=== PATIENT | female | born 1955 | race African-American/Black ===

== ENCOUNTER 2019-02-04 10:49 | Inpatient (IN) | payer OTHER ==
[2019-01-30 09:24] VITALS: BMI 28.0
[2019-02-04] MEDS ORDERED: TRANEXAMIC ACID 1000 MG/10 ML VIAL IVPUSH ONE (12:01)
[2019-02-04] MEDS ORDERED: VANCOMYCIN 1,000 MG in DEXTROSE 5%-WATER - 250 ML IVPB ONE (12:01)
[2019-02-04] MEDS ORDERED: CEFAZOLIN 2 GM in DEXTROSE 5%-WATER - 50 ML IVPB ONE (12:01)
[2019-02-04] MEDS ORDERED: TRANEXAMIC ACID 1000 MG/10 ML VIAL ONE (12:43)
[2019-02-04] MEDS ORDERED: PROPOFOL 20 ML ONE ×3 (12:43→15:24)
[2019-02-04] MEDS ORDERED: ceFAZolin SODIUM 1 GM VIAL ONE (12:43)
[2019-02-04] MEDS ORDERED: BUPIVACAINE HCL/PF 0.5% (5MG/ML) 10 ML VIAL ONE (12:50)
[2019-02-04] MEDS ORDERED: HYDROmorphone HCL CARPU-JECT 1 MG/1 ML DISP.SYRIN IVPUSH PRN (13:57)
[2019-02-04] MEDS ORDERED: oxyCODONE HCL 5 MG TABLET PO PRN (13:57)
[2019-02-04] MEDS ORDERED: LACTATED RINGERS SOLUTION 1,000 ML IV SCH ×2 (14:00→17:00)
[2019-02-04] MEDS ORDERED: DEXAMETHASONE SOD PHOSPHATE 4 MG/1 ML VIAL ONE (14:55)
[2019-02-04] MEDS ORDERED: ONDANSETRON 4 MG/2 ML VIAL ONE ×2 (14:55→18:02)
--- NOTE | 2019-02-04 16:49 | OP ---
Operative Note - Note: Operative Date: 02/04/19 Pre-Operative Diagnosis: Left knee osteoarthritis Operation: Left knee arthroplasty Post-Operative Diagnosis: Same as Pre-op Surgeon: Johnathon Carbajal Traveling Missionary: Wang Rider Anesthesia: Spinal Estimated Blood Loss (mls): 25 Operative Report Dictated: Yes
--- NOTE | 2019-02-04 16:50 | SURG ---
Surgery Vice President Process Note Vice President Process: Wang Rider PA-C Date of Service: 02/04/19 Diagnosis: Left knee osteoarthritis Procedure: Left knee arthroplasty I was present for the entirety of the operative procedure. For further detail, please refer to operative report. Visit type - Case Type Case Type: Scheduled - Emergency Emergency Visit: No - New patient This patient is new to me today: Yes Date on this admission: 02/04/19 - Critical Care Critical Care patient: No
[2019-02-04] MEDS ORDERED: MELATONIN 5 MG TABLETS PO PRN (16:51)
[2019-02-04] MEDS ORDERED: ALBUTEROL SO4 8 GM HFA INHALER IH PRN (16:51)
[2019-02-04] MEDS ORDERED: ONDANSETRON 4 MG/2 ML VIAL IVPUSH PRN (16:53)
[2019-02-04] MEDS ORDERED: MAGNESIUM HYDROX 2400MG/30ML ORAL SUSPENSION 30 ML CUP PO PRN (16:53)
[2019-02-04] MEDS: ACETAMINOPHEN 325 MG TABLET (FP) PO SCH ×2 (17:45→21:39)
[2019-02-04] MEDS ORDERED: ACETAMINOPHEN 325 MG TABLET (FP) ONE (17:50)
[2019-02-04] MEDS ORDERED: CEFAZOLIN 2 GM in DEXTROSE 5%-WATER - 50 ML IVPB SCH ×2 (18:00→22:00)
[2019-02-04] MEDS: MAG HYDROX/AL HYDROX/SIMETH 30 ML UNIT-DOSE CUP PO PRN (18:20)
--- NOTE | 2019-02-04 18:33 | HP ---
Admitting History and Physical - Admission Chief Complaint: Left knee osteoarthritis History of Present Illness: 63 yo lady with worsening Left knee osteoarthritis, with worsening pain came in for arthroplasty with Dr Carbajal. denies chest pain, palpitations, nausea, vomiting, diarrhea History Source: Patient Limitations to Obtaining History: No Limitations - Smoking History Smoking history: Never smoked Have you smoked in the past 12 months: No - Alcohol/Substance Use Hx Alcohol Use: Yes (SOCIALLY) Home Medications - Allergies Allergies/Adverse Reactions: Allergies Allergy/AdvReac Type Severity Reaction Status Date / Time sulfamethoxazole Allergy Severe Nausea AND Verified 02/04/19 12:44 LETHARGY trimethoprim Allergy Severe Nausea Verified 02/04/19 12:44 LETHARGY - Home Medications Home Medications: Ambulatory Orders Albuterol Sulfate Inhaler - [Ventolin Hfa Inhaler -] 2 inh PO Q6H PRN MDD USES RARELY 01/30/19 Aspirin [Aspirin EC] 81 mg PO DAILY 01/30/19 Atorvastatin Ca [Lipitor] 10 mg PO DAILY 01/30/19 Biotin 5,000 mcg PO HS 01/30/19 Biotin 10,000 mcg PO DAILY 01/30/19 Chlorpheniramine Maleate [Aller-Chlor] 4 mg PO BID 01/30/19 Clonidine HCl [Clonidine HCl ER] 0.1 mg PO HS 01/30/19 Losartan/Hydrochlorothiazide [Losartan-Hctz 100-25 mg Tab] 1 each PO DAILY 01/30 Melatonin 10 mg PO HS PRN 01/30/19 Naproxen Sodium 440 mg PO BID 01/30/19 Omeprazole 20 mg PO HS 01/30/19 Saccharomyces Boulardii [Probiotic] 500 mg PO DAILY 01/30/19 Sitagliptin Phosphate [Januvia] 100 mg PO DAILY 01/30/19 metFORMIN HCL [Metformin HCl ER] 1,500 mg PO DAILY 01/30/19 Family Disease History - Family Disease History Family History: Unremarkable Review of Systems - Review of Systems Constitutional: reports: No Symptoms Eyes: reports: No Symptoms HENT: reports: No Symptoms Neck: reports: No Symptoms Cardiovascular: reports: No Symptoms Respiratory: reports: No Symptoms Gastrointestinal: reports: No Symptoms Genitourinary: reports: No Symptoms Musculoskeletal: reports: Joint Pain Integumentary: reports: No Symptoms Neurological: reports: No Symptoms Endocrine: reports: No Symptoms Hematology/Lymphatic: reports: No Symptoms Psychiatric: reports: No Symptoms Pain Intensity: 7 Physical Examination Vital Signs: Vital Signs Temperature 98 F 02/04/19 17:30 Pulse Rate 65 02/04/19 17:30 Respiratory Rate 16 02/04/19 17:30 Blood Pressure 129/66 02/04/19 17:30 O2 Sat by Pulse Oximetry (%) 100 02/04/19 17:30 Constitutional: Yes: Well Nourished Eyes: Yes: WNL HENT: Yes: WNL Neck: Yes: WNL Cardiovascular: Yes: WNL Respiratory: Yes: WNL Gastrointestinal: Yes: WNL Renal/: Yes: WNL Musculoskeletal: Yes: Joint Stiffness Extremities: Yes: WNL Edema: No Peripheral Pulses WNL: Yes Integumentary: Yes: WNL Wound/Incision: Yes: Clean/Dry, Well Approximated Neurological: Yes: WNL ...Motor Strength: WNL Psychiatric: Yes: WNL Assessment/Plan 63 yo lady with left knee OA S/P Left knee arthroplasty POD #0. cont pain management, incentive spirometry. stool softeners added to avoid opioid induced constipation. -GI, DVT prophylaxis. -type 2 DM: on metformin, januvia -chronic asthma: cont bronchodilators -CAD: on aspirin, lipitor -HTN: on hyzaar, clonidine -oral diet, diabetic, low sodium -PT/OT/OOB as tolerated -DC planned for Saturday if cleared
[2019-02-04] MEDS: ASPIRIN COATED 81 MG TABLET.EC PO SCH (21:40)
[2019-02-04] MEDS: SENNOSIDES/DOCUSATE COMBO (SENNA PLUS) TABLET (UD) PO SCH (21:40)
[2019-02-04] MEDS: ATORVASTATIN CA 10 MG TABLET (FP) PO SCH (21:40)
[2019-02-04] MEDS: oxyCODONE HCL 10 MG SUSTAINED ACTING TABLET PO SCH (21:40)
[2019-02-04] MEDS: CEFAZOLIN 2 GM/D5W 2 GM/50 ML ML IVPB SCH (21:41)
[2019-02-04] MEDS ORDERED: PATIENT'S OWN MEDICATION (NON-FORMULARY) (Clonidine Hcl [Clonidine Hcl Er] 0.1 MG) PO SCH (22:00)
[2019-02-04] MEDS ORDERED: NAPROXEN SODIUM 440 MG PO SCH (22:00)
[2019-02-04] MEDS ORDERED: PATIENT'S OWN MEDICATION (NON-FORMULARY) (Biotin [Biotin] 5,000 MCG) PO SCH (22:00)
[2019-02-04] MEDS ORDERED: PATIENT'S OWN MEDICATION (NON-FORMULARY) (Omeprazole 20 MG) PO SCH (22:00)
[2019-02-04] MEDS ORDERED: CHLORPHENIRAMINE MALEATE 4 MG PO SCH (22:00)
[2019-02-04] MEDS: oxyCODONE HCL 5 MG TABLET PO PRN (22:13)
[2019-02-05] MEDS ORDERED: HYDROmorphone HCL CARPU-JECT 1 MG/1 ML DISP.SYRIN IVPB PRN (01:46)
[2019-02-05] MEDS ORDERED: ACETAMINOPHEN 1000 MG/100 ML VIAL (NON FORMULARY) IVPB ONE (01:48)
[2019-02-05] MEDS ORDERED: KETOROLAC TROMETHAMINE 30 MG/1 ML VIAL IVPUSH ONE (01:49)
[2019-02-05] MEDS: ONDANSETRON 4 MG/2 ML VIAL IVPUSH PRN ×2 (01:54→08:13)
[2019-02-05] MEDS: ACETAMINOPHEN 325 MG TABLET (FP) PO SCH ×4 (05:36→20:03)
[2019-02-05] MEDS: CEFAZOLIN 2 GM/D5W 2 GM/50 ML ML IVPB SCH (05:36)
[2019-02-05 07:52] LABS: HEMATOCRIT 36.7 % (32.4-45.2); HEMOGLOBIN 12.3 GM/dl (10.7-15.3); MCH 31.7 pg (25.7-33.7); MCHC 33.5 g/dl (32.0-36.0); MEAN CELL VOLUME 94.6 fl (80-96); MEAN PLT VOLUME 8.6 fl (7.5-11.1); PLATELET COUNT 251 K/MM3 (134-434); RBC 3.87 M/mm3 (3.60-5.2); RDW 12.6 % (11.6-15.6); WHITE BLOOD COUNT 14.9 K/mm3 (4.0-10.8)
[2019-02-05 07:57] LABS: CALCIUM 9.2 mg/dl (8.5-10); CREATININE 1.2 mg/dl (0.55-1.3); POTASSIUM 4.1 mmol/L (3.5-5.1)
[2019-02-05] MEDS ORDERED: METOCLOPRAMIDE HCL INJECTION 10 MG/2 ML VIAL IVPUSH PRN (08:17)
--- NOTE | 2019-02-05 08:22 | SPA.POSTOP ---
- POST-OP NOTE POD #1 s/p Left TKR No acute events since surgical procedure per RN notes. Patient resting comfortably. Pain management via prn meds. Denies n/v/f/c, CP or SOB. Last Vital Signs Temp Pulse Resp BP Pulse Ox 97.7 F 79 16 128/61 100 02/05/19 06:00 02/05/19 06:00 02/05/19 06:00 02/05/19 06:00 02/05/19 06:00 Physical Exam General: No acute distress. Pulm: breathing comfortably Cor: Regular rhythm LLE: Soft, non-tender bilat. SCD's bilat. no weakness or numbness, drain in place with serosanguinous drainage. Output: 90ml Problem List - Problems (1) S/P total knee replacement Assessment/Plan: Plan -OOB/ambulate with PT -pain management -DVT ppx -will plan for discharge tomorrow. Code(s): Z96.659 - PRESENCE OF UNSPECIFIED ARTIFICIAL KNEE JOINT Qualifiers: Laterality: left Qualified Code(s): Z96.652 - Presence of left artificial knee joint
[2019-02-05] MEDS: sitaGLIPtin PHOSPHATE 50 MG TABLET PO SCH (09:49)
[2019-02-05] MEDS: LACTOBACILLUS ACIDOPHILUS 1 TABLET PO SCH (09:51)
[2019-02-05] MEDS: LOSARTAN 50MG/HCTZ 12.5MG 1 TAB (FP) PO SCH (09:51)
[2019-02-05] MEDS: ASPIRIN COATED 81 MG TABLET.EC PO SCH ×2 (09:51→21:34)
[2019-02-05] MEDS: PANTOPRAZOLE 40 MG TABLET (FP) PO SCH (09:52)
[2019-02-05] MEDS: SENNOSIDES/DOCUSATE COMBO (SENNA PLUS) TABLET (UD) PO SCH ×2 (09:52→21:34)
[2019-02-05] MEDS: MULTIVITAMINS (DAILY MVI) TABLET (FP) PO SCH (09:53)
[2019-02-05] MEDS ORDERED: BIOTIN 10000 MCG PO SCH (10:00)
--- NOTE | 2019-02-05 10:23 | OP ---
DATE OF OPERATION: DATE OF DICTATION: 02/05/2019 SURGEON: Johnathon Carbajal MD DIET ASSISTANT: NJ Sullivan PREOPERATIVE DIAGNOSIS: Tricompartmental osteoarthritis of the left knee with fixed flexion deformity and fixed varus deformity. POSTOPERATIVE DIAGNOSIS: Tricompartmental osteoarthritis of the left knee with fixed flexion deformity and fixed varus deformity. OPERATION PERFORMED: Left posterior stabilized cemented total knee arthroplasty ([place]). ANESTHESIA: Conscious sedation with peripheral nerve block, as well as spinal anesthesia. ANTIBIOTICS GIVEN: Kefzol 2 g, 1 g vancomycin. PROCEDURE: Patient was correctly identified, brought to the operating room. The left lower extremity free draped and prepped in the routine manner with Betadine scrub solution, wiped off with alcohol, DuraPrep applied. The left lower extremity was examined, was found to have a 10-degree fixed flexion deformity and a 7 to 10-degree fixed varus deformity. Midline incision utilized. The quadriceps mechanism was identified. After incising down through the subcutaneous fat to the fascia, the medial vastus was identified. The epimysium of the muscle was dissected off the muscle belly extending all the way around to the medial intermuscular septum, stripping the muscle off the intermuscular septum, down to the knee aspera. The dissection was taken leaving a 1-inch cuff of tissue off the distal border of vastus medialis; so the incision was from the medial side of the capsule along the femur, extending all the way to meet the proximal tibial dissection, which was directly off the bone on the medial side of the proximal bone bed. This was a sharp dissection. The knee was subluxed forward with no difficulty. The cruciate ligaments were transected. Hohmann placed on the lateral side of the tibia. The first cut made was the tibia with extra-medullary jig alignment. The cut was made 90 degrees to the tibial shaft to measure a size 4 tibia; 2 mm of bone was taken from diseased medial side. The femur itself, the starter drill was placed just at the level of the posterior cruciate ligament at the top of the intercondylar notch and the starter drill was inserted. The sword for the distal femoral cut was inserted, measured to 4 degrees of valgus and 3 degrees of external rotation. The joint line was by 2 mm as 10 mm of bone was resected. Utilizing the [employer] [place] all block jig system, chamfer cuts were made appropriately. A size 3 femoral component was opted for. The trial implants were inserted, bringing about full anatomical realignment and complete stability with a 13 mm spacer. The flexion and extension gaps were even at 13 mm. Laxity noted on the medial side, this because of the correction of the quadrilateral extension gap. The shock tension was tested on the medial side. Once all these parameters were identified and noted, the tibial tray was appropriately completed by inserting the peg hole, as well as the fins for the appropriate tibial component. The bone bed was thoroughly lavaged with pulse lavage. Once this had been completed, the cementing was in 1 stage all components tibia, femur and then patella. It must be noted that the patella button was cut from quad tendon to patellar ligament and the appropriate 27 mm lag hole was drilled and inserted. All components were cemented in 1 seating. All cement was cured and extraneous cement removed appropriately. The tissues were washed and lavaged completely and found to be completely free of any abnormalities, any free fragments of cement or bone. The 13 mm TS polyethylene inserted. This brought about a range of 0 to 120 degrees on the table and complete stability in the coronal, as well as the sagittal plane, both in varus valgus, as well as in rotation. Once again the shock test tested, revealed complete stability of the medial side. Once again the wounds were thoroughly lavaged. Closure in the quadriceps medial retinaculum 1 Vicryl, subcutaneous 1 and 2-0 Vicryl, skin 3-0 Monocryl with Steri-Strips x1. DRAINAGE: Hemovac 1/8-inch brought out laterally to drain the sub-vastus bed. COMPLICATIONS: No complications. Operation well. MD DIETER Velazquez/[id number]
[2019-02-05] MEDS: oxyCODONE HCL 10 MG SUSTAINED ACTING TABLET PO SCH ×2 (11:34→21:34)
[2019-02-05] MEDS: oxyCODONE HCL 5 MG TABLET PO PRN (16:29)
--- NOTE | 2019-02-05 16:50 | PN ---
Progress Note, Physician Chief Complaint: left knee pain - Current Medication List Current Medications: Active Medications Acetaminophen (Tylenol -) 650 mg PO Q6H [facility] Stop: 02/07/19 13:59 Last Admin: 02/05/19 14:30 Dose: 650 mg Al Hydroxide/Mg Hydroxide (Mylanta Oral Suspension -) 30 ml PO Q4H PRN PRN Reason: DYSPEPSIA Last Admin: 02/04/19 18:20 Dose: 30 ml Albuterol Sulfate (Ventolin Hfa Inhaler -) 2 puff IH Q6H PRN PRN Reason: WHEEZING Aspirin (Ecotrin -) 81 mg PO BID [facility] Last Admin: 02/05/19 09:51 Dose: 81 mg Atorvastatin Calcium (Lipitor -) 10 mg PO HS [facility] Last Admin: 02/04/19 21:40 Dose: 10 mg HCTZ/Losartan Potassium (Hyzaar -) 2 tab PO DAILY [facility] Last Admin: 02/05/19 09:51 Dose: 2 tab Hydromorphone HCl (Dilaudid Injection -) 1 mg IVPB Q8H PRN PRN Reason: PAIN LEVEL 4 - 6 Stop: 02/06/19 01:45 Last Admin: 02/05/19 01:45 Dose: 1 mg Lactobacillus Acidophilus (Bacid -) 1 tab PO DAILY [facility] Last Admin: 02/05/19 09:51 Dose: 1 tab Magnesium Hydroxide (Milk Of Magnesia -) 30 ml PO PRN PRN PRN Reason: CONSTIPATION Melatonin (Melatonin) 10 mg PO HS PRN PRN Reason: INSOMNIA Metformin HCl (Glucophage Xr -) 1,500 mg PO DAILY@0700 [facility] Last Admin: 02/05/19 09:49 Dose: 1,500 mg Metoclopramide HCl (Reglan Injection -) 10 mg IVPUSH Q6H PRN PRN Reason: NAUSEA AND/OR VOMITING Last Admin: 02/05/19 11:42 Dose: 10 mg Multivitamins/Minerals/Vitamin C (Tab-A-Vit -) 1 tab PO DAILY [facility] Last Admin: 02/05/19 09:53 Dose: 1 tab Non-Formulary Medication (Biotin [Biotin]) 5,000 mcg PO HS [facility] Non-Formulary Medication (Biotin [Biotin]) 10,000 mcg PO DAILY [facility] Non-Formulary Medication (Chlorpheniramine Maleate [Aller-Chlor]) 4 mg PO BID [facility] Non-Formulary Medication (Clonidine Hcl [Clonidine Hcl Er]) 0.1 mg PO HS [facility] Non-Formulary Medication (Naproxen Sodium [Naproxen Sodium]) 440 mg PO BID [facility] Oxycodone HCl (Roxicodone -) 5 mg PO Q3H PRN PRN Reason: PAIN LEVEL 1-5 Last Admin: 02/05/19 16:29 Dose: 5 mg Oxycodone HCl (Roxicodone -) 10 mg PO Q3H PRN PRN Reason: PAIN LEVEL 6-10 Last Admin: 02/05/19 01:00 Dose: 10 mg Oxycodone HCl (Oxycontin -) 10 mg PO BID [facility] Stop: 02/07/19 13:58 Last Admin: 02/05/19 11:34 Dose: Not Given Pantoprazole Sodium (Protonix -) 40 mg PO DAILY [facility] Last Admin: 02/05/19 09:52 Dose: 40 mg Senna/Docusate Sodium (Pericolace -) 2 tablet PO BID [facility] Last Admin: 02/05/19 09:52 Dose: 2 tablet Sitagliptin Phosphate (Januvia -) 100 mg PO DAILY@0700 [facility] Last Admin: 02/05/19 09:49 Dose: 100 mg - Objective Vital Signs: Vital Signs Temperature 98.5 F 02/05/19 14:00 Pulse Rate 68 02/05/19 14:00 Respiratory Rate 17 02/05/19 14:00 Blood Pressure 134/56 L 02/05/19 14:00 O2 Sat by Pulse Oximetry (%) 98 02/05/19 14:00 Constitutional: Yes: Well Nourished, No Distress Eyes: Yes: WNL HENT: Yes: WNL Neck: Yes: WNL Cardiovascular: Yes: WNL Respiratory: Yes: WNL Gastrointestinal: Yes: WNL Genitourinary: Yes: WNL Musculoskeletal: Yes: Joint Stiffness Extremities: Yes: WNL Edema: No Peripheral Pulses WNL: Yes Integumentary: Yes: WNL Wound/Incision: Yes: Clean/Dry, Well Approximated Neurological: Yes: WNL ...Motor Strength: WNL Psychiatric: Yes: WNL Labs: CBC, BMP 02/05/19 07:33 02/05/19 07:33 Assessment/Plan 63 yo lady with left knee OA S/P Left knee arthroplasty POD #1. cont pain management, incentive spirometry. stool softeners added to avoid opioid induced constipation. -GI, DVT prophylaxis. -type 2 DM: on metformin, januvia -chronic asthma: cont bronchodilators -hyponatremia: acceptable when corrected for hyperglycemia. -CAD: on aspirin, lipitor -HTN: on hyzaar, clonidine -oral diet, diabetic, low sodium -PT/OT/OOB as tolerated -DC planned for tomorrow
[2019-02-05] MEDS: MAG HYDROX/AL HYDROX/SIMETH 30 ML UNIT-DOSE CUP PO PRN (21:34)
[2019-02-05] MEDS: ATORVASTATIN CA 10 MG TABLET (FP) PO SCH (21:34)
[2019-02-06] MEDS: ACETAMINOPHEN 325 MG TABLET (FP) PO SCH ×2 (01:45→08:52)
[2019-02-06] MEDS: MAG HYDROX/AL HYDROX/SIMETH 30 ML UNIT-DOSE CUP PO PRN ×2 (06:11→11:18)
[2019-02-06] MEDS: sitaGLIPtin PHOSPHATE 50 MG TABLET PO SCH (06:12)
[2019-02-06] MEDS: oxyCODONE HCL 5 MG TABLET PO PRN (06:12)
[2019-02-06 07:19] LABS: HEMATOCRIT 38.3 % (32.4-45.2); MEAN CELL VOLUME 94.3 fl (80-96); MEAN PLT VOLUME 8.7 fl (7.5-11.1); PLATELET COUNT 270 K/MM3 (134-434); RBC 4.06 M/mm3 (3.60-5.2); RDW 12.6 % (11.6-15.6); WHITE BLOOD COUNT 17.6 K/mm3 (4.0-10.8)
[2019-02-06 07:45] VITALS: BP 115/59; PULSE 77; TEMP 98.6
--- NOTE | 2019-02-06 08:13 | PN ---
Progress Note (short form) - Note Progress Note: Orthopedic surgery POD#2 left TKA patient seen and examined at bedside. Patient states her pain is controlled and she has been ambulating with a walker and PT. She is tolerating her diet and voiding. She denies any CP, SOB, Fever, chills or N/V/D. Vital Signs Temp 98.6 F 02/06/19 06:00 Pulse 77 02/06/19 06:00 Resp 19 02/06/19 06:00 BP 115/59 L 02/06/19 06:00 Pulse Ox 98 02/06/19 07:44 Intake & Output 02/05/19 02/05/19 02/06/19 11:59 23:59 11:59 Intake Total 400 Output Total 300 560 60 Balance -300 -160 -60 Intake: Oral 400 Output: Drainage 100 60 60 Left Knee 100 60 60 Urine 200 500 Void 200 500 Other: Voiding Method Toilet Toilet # Unmeasured Voids Void 900 CBC, BMP 02/06/19 07:05 02/05/19 07:33 PE: A&OX3, NAD unlabored resp on RA Left LE: Thigh soft and supple. knee with diffuse edema appropriate to status, dressing c/d/i with surrounding tissue intact, no evidence of tracking erythema , collection or d/c, drain removed with tip fully intact, drain site with no active bleeding. AROM from 0-80 degrees. B/L LE compartments soft, supple and non-tender with +2 DP pulses and 5/5 dorsi/ plantar flexion. Problem List - Problems (1) S/P total knee replacement Assessment/Plan: POD#2 Left TKA with elevated WBCs but afebrile with no signs of infection. 1) Continue Aspirin 81 mg BID x 6 weeks to prevent DVT. 2) OOB with Walker and PT 3) WBAT 4) d/c home today 5) Encourage daily IS Evaluation and plan discussed with Dr Sy Code(s): Z96.659 - PRESENCE OF UNSPECIFIED ARTIFICIAL KNEE JOINT Qualifiers: Laterality: left Qualified Code(s): Z96.652 - Presence of left artificial knee joint
[2019-02-06] MEDS: MULTIVITAMINS (DAILY MVI) TABLET (FP) PO SCH (09:29)
[2019-02-06] MEDS: PANTOPRAZOLE 40 MG TABLET (FP) PO SCH (09:29)
[2019-02-06] MEDS: LOSARTAN 50MG/HCTZ 12.5MG 1 TAB (FP) PO SCH (09:29)
[2019-02-06] MEDS: ASPIRIN COATED 81 MG TABLET.EC PO SCH (09:29)
[2019-02-06] MEDS: SENNOSIDES/DOCUSATE COMBO (SENNA PLUS) TABLET (UD) PO SCH (09:29)
[2019-02-06] MEDS: oxyCODONE HCL 10 MG SUSTAINED ACTING TABLET PO SCH (09:29)
[2019-02-06] MEDS: LACTOBACILLUS ACIDOPHILUS 1 TABLET PO SCH (09:30)
--- NOTE | 2019-02-06 09:48 | DS ---
Physical Examination Vital Signs: Vital Signs Temperature 98.6 F 02/06/19 06:00 Pulse Rate 77 02/06/19 06:00 Respiratory Rate 18 02/06/19 08:06 Blood Pressure 115/59 L 02/06/19 06:00 O2 Sat by Pulse Oximetry (%) 99 02/06/19 08:06 Labs: CBC, BMP 02/06/19 07:05 02/05/19 07:33 Discharge Summary Reason For Visit: TRANSIENT SYNOVITIS LEFT KNEE Current Active Problems S/P total knee replacement (Acute) Hospital Course: 63 yo lady with left knee OA S/P Left knee arthroplasty POD #2. cont pain management, incentive spirometry. stool softeners added to avoid opioid induced constipation. -GI, DVT prophylaxis. -type 2 DM: on metformin, januvia -chronic asthma: cont bronchodilators -hyponatremia: acceptable when corrected for hyperglycemia. -CAD: on aspirin, lipitor -HTN: on hyzaar, clonidine -oral diet, diabetic, low sodium -PT/OT/OOB as tolerated Condition: Good - Instructions Diet, Activity, Other Instructions: Dr. Carbajal Discharge Instructions for Knee Replacement Post Operative Instructions Physical activity Physical Therapist will come to your home for the first 5 days. You will be set up with outpatient PT at your first post-operative visit. Use assistive devices for ambulation at all times. Weight bearing as tolerated on your surgical side. Do not put pillow under knee. May put pillow under heel. Wound care Leave your surgical dressing in place. Do not change the dressing until seen by your surgeon in the office. No baths or showers. Do not submerge your incision. Do not apply any ointments or lotions to your incision. Please call the office if your dressing is soiled/dirty or is falling off. Apply Graduated Compression Stockings (TEDS) to both lower extremities - remove daily for hygiene ONLY. Diet There are no dietary restrictions. Eat healthy, high-fiber foods. Drink 6 to 8 glasses of liquid each day. This will assist in keeping your bowels are regular. Pain management Any pain prescription medication ordered should be taken as prescribed for moderate to severe pain. Do not take additional Tylenol while taking Percocet. Take Aspirin 81 mg two times a day for a total of 6 weeks to prevent blood clots. Call Dr. Carbajal for any of the following: Severe pain not relieved by medication Fever of 101 or higher Excessive bleeding or drainage on dressing Inability to urinate If you experience chest pain or shortness of breath, please seek emergency care immediately. Please call the office at to confirm your post-op appointment for the week following surgery. Disposition: HOME - Home Medications Comprehensive Discharge Medication List: Ambulatory Orders Albuterol Sulfate Inhaler - [Ventolin Hfa Inhaler -] 2 inh PO Q6H PRN MDD USES RARELY 01/30/19 Aspirin [Aspirin EC] 81 mg PO DAILY 01/30/19 Atorvastatin Ca [Lipitor] 10 mg PO DAILY 01/30/19 Biotin 5,000 mcg PO HS 01/30/19 Biotin 10,000 mcg PO DAILY 01/30/19 Chlorpheniramine Maleate [Aller-Chlor] 4 mg PO BID 01/30/19 Clonidine HCl [Clonidine HCl ER] 0.1 mg PO HS 01/30/19 Losartan/Hydrochlorothiazide [Losartan-Hctz 100-25 mg Tab] 1 each PO DAILY 01/30 Melatonin 10 mg PO HS PRN 01/30/19 Naproxen Sodium 440 mg PO BID 01/30/19 Omeprazole 20 mg PO HS 01/30/19 Saccharomyces Boulardii [Probiotic] 500 mg PO DAILY 01/30/19 Sitagliptin Phosphate [Januvia] 100 mg PO DAILY 01/30/19 metFORMIN HCL [Metformin HCl ER] 1,500 mg PO DAILY 01/30/19
--- NOTE | 2019-02-09 12:52 | PATH ---
Surgical Pathology Report Patient Name: RAFY DOE Med. Rec. #: [id number] /Age/Gender: 1955 (Age: 63) / F Account: [id number] Location: [facility] Taken: 02/04/2019 Received: 02/04/2019 Reported: 02/09/2019 Physicians: Johnathon Carbajal M.D. Specimen(s) Received BONE LEFT KNEE Clinical History Left knee osteoarthritis Final Diagnosis BONE, LEFT KNEE, TOTAL KNEE REPLACEMENT: DEGENERATIVE JOINT DISEASE. Electronically Signed Janice Cotton M.D. Gross Description Received in formalin labeled "bone left knee," is a 13.5 x 10.0 x 2.0 cm aggregate of multiple portions of bone and soft tissue. The tibial plateau measures 7.5 x 5.3 x 1.8 cm. There are multiple areas of eburnation present, measuring up to 4.5 cm in greatest dimension. The remaining articular surfaces are hernandez-yellow and focally granular. The underlying trabecular bone is yellow and hard. Sheet [employer] Installer sections are submitted in one cassette, following decalcification. 02/06/2019 [facility]02/06/2019
== END 2019-02-06 12:43 | disposition home or self-care (01) | DRG 470 ==
LOC: FM/S 12:21
PROVIDERS: ADMIT Orthopaedic Surgery Orthopaedic Surgery of the Spine; ATTEND Internal Medicine
PROC: 0SRD0J9 Replacement of Left Knee Joint with Synthetic Substitute, Cemented, Open Approach (ICD-10-PCS; principal; 2019-02-05)
DX: M17.12 Unilateral primary osteoarthritis, left knee (principal); E87.1 Hypo-osmolality and hyponatremia; M21.162 Varus deformity, not elsewhere classified, left knee; E11.9 Type 2 diabetes mellitus without complications; Z79.84 Long term (current) use of oral hypoglycemic drugs; J45.909 Unspecified asthma, uncomplicated; I25.10 Atherosclerotic heart disease of native coronary artery without angina pectoris; I10 Essential (primary) hypertension
CPT/HCPCS: 36415; 73560-TC-LT-FY; 80048; 82962; 85027; 88304-TC; 88311-TC; 94760; 97116-GP; 97161-GP; J0131